=== PATIENT | female | born 1945 ===

== ENCOUNTER 2017-10-20 07:40 | Day surgery (SDC) | payer MEDICARE, OTHER ==
[2017-10-20] MEDS ORDERED: Lactated Ringer's 1,000 ML IV ONE (08:08)
[2017-10-20 08:25] VITALS: TEMP 96.6
[2017-10-20] MEDS ORDERED: Lidocaine PF 2% (5 ml) Inj (For Cardiac Arrhy) IV ONE (09:21)
[2017-10-20] MEDS ORDERED: Propofol 10 mg/ml Inj (20 ML) ONE (09:21)
[2017-10-20 10:28] VITALS: BP 122/52; PULSE 75; RESP 22; O2SAT 100
== END 2017-10-20 11:30 | disposition home or self-care (01) ==
LOC: H.ENDO 07:40
PROVIDERS: ATTEND Internal Medicine Gastroenterology
DX: Z86.010 Personal history of colon polyps (principal); E11.9 Type 2 diabetes mellitus without complications; I10 Essential (primary) hypertension; R10.13 Epigastric pain; K44.9 Diaphragmatic hernia without obstruction or gangrene; I89.0 Lymphedema, not elsewhere classified; K21.9 Gastro-esophageal reflux disease without esophagitis; K64.8 Other hemorrhoids; K57.30 Diverticulosis of large intestine without perforation or abscess without bleeding; B96.81 Helicobacter pylori [H. pylori] as the cause of diseases classified elsewhere; K29.50 Unspecified chronic gastritis without bleeding
CPT/HCPCS: 43239; 45378; 88305; J2001; J2704; J7120